=== PATIENT | male | born 1990 | race Caucasian/White ===

== ENCOUNTER → 2020-11-25 | Outpatient (CLI) | payer OTHER ==
[2020-11-25 15:14] LABS: TRIGLYCERIDES 161 MG/DL (<150); VLDL CHOLESTEROL 32 MG/DL (5-40)
[2020-11-25 15:19] LABS: CHOLESTEROL 234 MG/DL (< 200); HDL CHOLESTEROL 49 MG/DL (40-60)
== END ==
LOC: LAB FS 09:25
PROVIDERS: ATTEND Internal Medicine Cardiovascular Disease
DX: E78.2 Mixed hyperlipidemia (principal)
CPT/HCPCS: 36415; 80061

== ENCOUNTER 2020-12-27 10:00 | Outpatient (RCR) | payer OTHER | END 2021-03-27 | disposition home or self-care (01) | LOC: CARD 10:00 | PROVIDERS: ATTEND Internal Medicine Cardiovascular Disease | DX: I10 Essential (primary) hypertension (principal); R00.2 Palpitations | CPT/HCPCS: 93225; 93226; 93306; 93351 ==

== ENCOUNTER → 2022-01-11 | Outpatient (CLI) | payer OTHER ==
[~2022-01-11] MED LIST: CATHETER FLUSH 10 ML SYR IV PRN; HOLD METFORMIN - RECEIVED CONTRAST 20 ML VIAL IV SCH; IOHEXOL 350 MG/ML 100 ML (OMNIPAQUE 350) VIAL IV ONE; NS 100 ML (IVPB) BAG IV ONE
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
== END ==
LOC: RAD 07:52
PROVIDERS: ATTEND Internal Medicine Cardiovascular Disease
DX: S42.001A Fracture of unspecified part of right clavicle, initial encounter for closed fracture (principal); S12.9XXA Fracture of neck, unspecified, initial encounter; I10 Essential (primary) hypertension; Z87.820 Personal history of traumatic brain injury
CPT/HCPCS: 70498